=== PATIENT | female | born 1995 | race Two or more races ===

== ENCOUNTER 2023-03-23 14:19 | Outpatient (CLI) | payer OTHER ==
[~2023-03-23 14:19] MED LIST: KEFLEX500 MG PO
== END 2023-03-23 15:39 | disposition home or self-care (01) ==
LOC: PRENATAL 14:19
PROVIDERS: ATTEND Obstetrics & Gynecology Maternal & Fetal Medicine
DX: O36.80X0 Pregnancy with inconclusive fetal viability, not applicable or unspecified (principal); Z3A.13 13 weeks gestation of pregnancy

== ENCOUNTER 2023-04-15 18:57 | Emergency (ER) | payer OTHER ==
[~2023-04-15] VITALS: Ht 162.6 cm; Wt 48.1 kg
[2023-04-15] MEDS ORDERED: PRENATAL + DHA1 EAC1 (19:05)
== END 2023-04-15 23:46 | disposition home or self-care (01) ==
LOC: ER 18:57
DX: O23.42 Unspecified infection of urinary tract in pregnancy, second trimester (principal); N39.0 Urinary tract infection, site not specified; O99.612 Diseases of the digestive system complicating pregnancy, second trimester; K80.20 Calculus of gallbladder without cholecystitis without obstruction; Z3A.16 16 weeks gestation of pregnancy; Z88.6 Allergy status to analgesic agent

== ENCOUNTER 2023-05-10 13:08 | Outpatient (CLI) | payer OTHER ==
[~2023-05-10 13:08] MED LIST changes: +PRENATAL + DHA1 EAC1
== END 2023-05-10 14:40 | disposition home or self-care (01) ==
LOC: PRENATAL 13:08
PROVIDERS: ATTEND Obstetrics & Gynecology Maternal & Fetal Medicine
DX: O35.9XX0 Maternal care for (suspected) fetal abnormality and damage, unspecified, not applicable or unspecified (principal); O35.3XX0 Maternal care for (suspected) damage to fetus from viral disease in mother, not applicable or unspecified; O34.10 Maternal care for benign tumor of corpus uteri, unspecified trimester; Z3A.20 20 weeks gestation of pregnancy

== ENCOUNTER 2023-08-03 10:12 | Outpatient (CLI) | payer OTHER | END 2023-08-03 11:47 | disposition home or self-care (01) | LOC: PRENATAL 10:12 | PROVIDERS: ATTEND Obstetrics & Gynecology Maternal & Fetal Medicine | DX: O26.849 Uterine size-date discrepancy, unspecified trimester (principal); O36.8199 Decreased fetal movements, unspecified trimester, other fetus; O34.10 Maternal care for benign tumor of corpus uteri, unspecified trimester; Z3A.32 32 weeks gestation of pregnancy ==

== ENCOUNTER 2023-09-18 03:07 | Inpatient (IN) | payer OTHER ==
[~2023-09-18] VITALS: Ht 162.6 cm; Wt 58.5 kg
[2023-09-18] MEDS ORDERED: ZOVIRAX400 MG PO (03:27)
[2023-09-18 04:19] LABS: HEMATOCRIT 31.6 % (36.0-45.00); HEMOGLOBIN 10.7 g/dL (12.0-15.00); MEAN CELL VOLUME 90.5 fL (80.00-100.00); MEAN CORPUSCULAR HEMOGLOBIN 30.7 pg (27.00-32.0); MEAN CORPUSCULAR HGB CONC 33.9 g/dl (32.0-36.0); PLATELET COUNT 249 K/uL (150-450); RED BLOOD COUNT 3.49 M/uL (4.00-6.00); RED CELL DISTRIBUTION WIDTH 14.6 % (11.5-14.5)
[2023-09-18 04:52] LABS: PH,URINE 6.5 (5.0-8.0); URINE APPEARANCE Clear; URINE BILIRRUBIN Negative (NEGATIVE); URINE BLOOD Negative; URINE COLOR Yellow; URINE GLUCOSE Negative (NEGATIVE); URINE LEUKOCYTE Negative; URINE NITRATE Negative; URINE PROTEIN Negative (NEGATIVE)
[2023-09-18 04:56] LABS: URINE BACTERIA 132.2 uL (0.0-1933); URINE RBC 8.9 uL (0.0-20.8); URINE WBC 2.6 uL (0.0-23.2)
[2023-09-18 08:53] LABS: INR < 0.93; PARTIAL THROMBOPLASTIN TIME 23.8 SECONDS (22.0-34.0); PROTHROMBIN TIME 9.7 SECONDS (9.0-11.5)
[2023-09-18 08:59] LABS: ALBUMIN 2.6 gm/dL (3.4-5.0); BILIRUBIN TOTAL 0.76 mg/dL (0.3-1.2); CALCIUM 8.5 mg/dL (8.5-10.1); CREATININE SERUM 0.38 mg/dL (0.55-1.02); GFR 204.71; GLOBULINA 3.2 G/DL (2.4-3.5); POTASSIUM 3.61 mEq/L (3.5-5.1); TOTAL PROTEIN 5.8 gm/dL (6.4-8.2)
[2023-09-19 06:58] LABS: HEMATOCRIT 34.2 % (36.0-45.00); HEMOGLOBIN 11.7 g/dL (12.0-15.00); MEAN CELL VOLUME 90.8 fL (80.00-100.00); MEAN CORPUSCULAR HGB CONC 34.1 g/dl (32.0-36.0); PLATELET COUNT 253 K/uL (150-450); RED BLOOD COUNT 3.76 M/uL (4.00-6.00); RED CELL DISTRIBUTION WIDTH 14.6 % (11.5-14.5)
== END 2023-09-20 14:08 | disposition home or self-care (01) | DRG 807 ==
LOC: OBS/DEL 03:07 → OB/GYN 07:05 → OBS/DEL 07:05 → LDR 07:05 → OB/GYN 15:42
PROVIDERS: ADMIT Obstetrics & Gynecology; ATTEND Obstetrics & Gynecology
PROC: 10E0XZZ Delivery of Products of Conception, External Approach (ICD-10-PCS; principal; 2023-09-18)
PROC: 0HQ9XZZ Repair Perineum Skin, External Approach (ICD-10-PCS; 2023-09-18)
PROC: 4A1HXCZ Monitoring of Products of Conception, Cardiac Rate, External Approach (ICD-10-PCS; 2023-09-18)
DX: O70.0 First degree perineal laceration during delivery (principal); Z37.0 Single live birth; Z3A.38 38 weeks gestation of pregnancy; Z20.822 Contact with and (suspected) exposure to COVID-19